=== PATIENT | female | born 1990 | race Caucasian/White ===

== ENCOUNTER 2023-10-26 11:49 | Emergency (ER) | payer SELFPAY ==
[2023-10-26 12:00] VITALS: BP 134/78; PULSE 78; RESP 20; TEMP 98.2; BMI 28.3
[2023-10-26] MEDS ORDERED: DIPHTH,PERTUSS(ACELL),TET 0.5 ML DISP.SYRIN IM ONE ×2 (13:58→14:15)
[2023-10-26] MEDS ORDERED: IBUPROFEN 400 MG TABLET (FP) PO ONE ×2 (14:50→14:55)
== END 2023-10-26 15:08 | disposition home or self-care (01) ==
LOC: JERFT 11:49 → JER 11:49 → JERFT 15:08
PROC: 0HQ1XZZ Repair Face Skin, External Approach (ICD-10-PCS; principal; 2023-10-26)
PROC: 3E0234Z Introduction of Serum, Toxoid and Vaccine into Muscle, Percutaneous Approach (ICD-10-PCS; 2023-10-26)
DX: S01.511A Laceration without foreign body of lip, initial encounter (principal); S00.512A Abrasion of oral cavity, initial encounter; W01.0XXA Fall on same level from slipping, tripping and stumbling without subsequent striking against object, initial encounter
CPT/HCPCS: 90715; 99283-25